=== PATIENT | female | born 1965 | race Caucasian/White ===

== ENCOUNTER → 2017-01-08 | Outpatient (CLI) | payer OTHER ==
--- NOTE | 2017-01-08 16:37 | KCIC ---
Bilateral digital screening mammograms with CAD: HISTORY Routine screening. COMPARISON Comparison is made to previous study dated 10/22/2014. FINDINGS Breast density category B. The skin and nipples show no abnormalities. No abnormal lymph nodes are seen in the axilla. The breast parenchyma shows scattered fibroglandular density. There is a small faint nodular density seen on left obliques view posteriorly just below the nipple level measuring 5.2 millimeters in size. This is not identified on the CC view and further evaluation with coned compression views and ultrasound is recommended. There are no other dominant masses, suspicious calcifications or architectural distortions. IMPRESSION 5.2 millimeter faint nodular density seen posteriorly in the left breast on obliques view only. Recommend further evaluation with coned compression views in lateral and CC projections and with ultrasound. This study was interpreted with the benefit of Computerized Aided Detection (CAD). Mammography is not 100% sensitive in detecting breast cancer. Therefore, a self breast exam and a clinical breast exam are very important. A negative mammogram does not negate a clinically suspicious finding and should not result in a delay in biopsying a clinically suspicious abnormality. BI-RADS category 0: Incomplete. Additional imaging is recommended. This patient's information has been entered into a reminder system for the patient to be notified with the results of this examination and a target date for her next mammograms. Electronically signed by: Irene Martinez MD (January 08, 2017 16:36:22)
== END | disposition home or self-care (01) ==
LOC: KCIC MAMMO 15:03
PROVIDERS: ATTEND Family Medicine
DX: Z12.31 Encounter for screening mammogram for malignant neoplasm of breast (principal)
CPT/HCPCS: G0202; 77067

== ENCOUNTER → 2017-01-08 | Outpatient (CLI) | payer OTHER ==
--- NOTE | 2017-01-08 15:51 | KCIC ---
PROCEDURE Sacrum and coccyx radiographs. HISTORY Sacral pain, no acute injury COMPARISON None FINDINGS Four views of the sacrum and coccyx are submitted. Sacroiliac joints are symmetric in appearance. Sacral arcuate lines are maintained. No acute fracture or dislocation is identified. There are likely phleboliths in the bilateral pelvis. IMPRESSION No acute radiographic abnormality is identified. Electronically signed by: Steven Joshua MD (January 08, 2017 15:51:09)
== END | disposition home or self-care (01) ==
LOC: KCIC 15:08
PROVIDERS: ATTEND Family Medicine
DX: M53.3 Sacrococcygeal disorders, not elsewhere classified (principal)
CPT/HCPCS: 72220

== ENCOUNTER → 2017-01-18 | Outpatient (CLI) | payer OTHER ==
--- NOTE | 2017-01-18 14:14 | RAD ---
DATE: 01/18/2017 EXAM: DIGITAL DIAGNOSTIC LT HISTORY: Suspicious screening study COMPARISON: 01/08/2017 This study was interpreted with the benefit of Computerized Aided Detection (CAD). FINDINGS: A faint opacity was noted posteroinferiorly on the screening study, on only the oblique view of the left breast. Spot compression oblique views of that region demonstrate mildly heterogeneous fibroglandular shadows. No discrete nodule is evident. The fibroglandular pattern is similar to that seen on 10/22/2014. CC and straight mediolateral views also show no evidence of a mass. The appearance on the screening study was probably a summation shadow. IMPRESSION: No mammographic evidence of malignancy in the left breast. BI-RADS CATEGORY: 2 BENIGN FINDING(S) RECOMMENDED FOLLOW-UP: 12M 12 MONTH FOLLOW-UP PQRS compliance statement: Patient information was entered into a reminder system with a target due date for the next mammogram. Mammography is a sensitive method for finding small breast cancers, but it does not detect them all and is not a substitute for careful clinical examination. A negative mammogram does not negate a clinically suspicious finding and should not result in delay in biopsying a clinically suspicious abnormality. "Our facility is accredited by the [employer] Mammography [employer]."
== END | disposition home or self-care (01) ==
LOC: MAMMO 13:16
PROVIDERS: ATTEND Family Medicine
DX: N63 Unspecified lump in breast (principal)
CPT/HCPCS: G0206; 77065

== ENCOUNTER → 2017-03-10 | Outpatient (CLI) | payer OTHER ==
--- NOTE | 2017-03-10 12:21 | RAD ---
Examination: 2 views of the lumbar spine History: History of lumbar pain for 2 months. Comparison: None available Findings: The vertebral body heights are maintained. No evidence of listhesis identified. The facets are well aligned. Mild degenerative changes identified in the facet joints. Impression: Mild degenerative changes.
== END | disposition home or self-care (01) ==
LOC: RAD 11:21
PROVIDERS: ATTEND Family Medicine
DX: M47.896 Other spondylosis, lumbar region (principal)
CPT/HCPCS: 72100

== ENCOUNTER → 2018-03-07 | Outpatient (CLI) | payer OTHER | END | disposition home or self-care (01) | LOC: KCIC MAMMO 13:18 | DX: Z12.31 Encounter for screening mammogram for malignant neoplasm of breast (principal) | CPT/HCPCS: 77067 ==

== ENCOUNTER → 2019-06-18 | Outpatient (CLI) | payer OTHER ==
--- NOTE | 2019-06-18 13:44 | KCIC ---
BILATERAL SCREENING MAMMOGRAM, 3-D History: Routine screening. Comparison: Bilateral mammogram March 07, 2018. Technique: MLO and CC digital tomosynthesis (3D) images obtained. Radiologist reviewed these images on dedicated workstation. Findings: Breast Tissue Density C : The breasts are heterogeneously dense, which may obscure small masses. The parenchymal pattern is stable but the parenchymal density has increased. There is no skin thickening. Probable explanation is hormone replacement therapy started since the prior mammogram, this is noted on the patient's information sheet. Please confirm use of HRT. There are no dominant masses, suspicious microcalcifications, or architectural distortion. IMPRESSION: 1. No mammographic evidence of malignancy. 2. The parenchymal density has increased. Please see above discussion. BI-RADS category 2: Benign findings. The images were reviewed with computer-aided detection. Patient information is entered into reminder system with a target due date for the next screening mammogram. Mammography is the most sensitive method for finding small breast cancers, but it does not detect them all and is not a substitute for careful clinical examination. A negative mammogram does not negate a clinically suspicious finding and should not result in delay in biopsying a clinically suspicious abnormality. "Our facility is accredited by the [employer] Mammography Program." Electronically signed by: Basil Myers MD (06/18/2019 1:41 PM) [id number]
== END | disposition home or self-care (01) ==
LOC: KCIC MAMMO 09:33
PROVIDERS: ATTEND Family Medicine
DX: Z12.31 Encounter for screening mammogram for malignant neoplasm of breast (principal)
CPT/HCPCS: 77063; 77067

== ENCOUNTER → 2021-02-16 | Outpatient (CLI) | payer OTHER ==
--- NOTE | 2021-02-17 07:51 | KCIC ---
BILATERAL SCREENING MAMMOGRAM, 3-D History: Routine screening. Comparison: Bilateral mammogram June 18, 2019. Technique: MLO and CC digital tomosynthesis (3D) images obtained. Radiologist reviewed these images on dedicated workstation. Findings: Breast Tissue Density C : The breasts are heterogeneously dense, which may obscure small masses. There are no dominant masses, suspicious microcalcifications or architectural distortion. IMPRESSION: No mammographic evidence of malignancy. Recommend routine screening. BI-RADS category 1: Negative. The images were reviewed with computer-aided detection. Patient information is entered into reminder system with a target due date for the next screening [facility] mogram. Mammography is the most sensitive method for finding small breast cancers, but it does not detect the m all and is not a substitute for careful clinical examination. A negative mammogram does not negate a clinically suspicious finding and should not result in delay in biopsying a clinically suspicious a bnormality. "Our facility is accredited by the [employer] Mammography Program." Electronically signed by: Basil Myers MD (02/17/2021 7:49 AM) [id number]
== END ==
LOC: KCIC MAMMO 09:59
PROVIDERS: ATTEND Family Medicine
DX: Z12.31 Encounter for screening mammogram for malignant neoplasm of breast (principal)
CPT/HCPCS: 77063; 77067